=== PATIENT | female | born 1975 | race Caucasian/White ===

== ENCOUNTER 2017-01-14 09:00 | Emergency (ER) | payer OTHER, BC ==
[~2017-01-14] VITALS: Ht 157.5 cm; Wt 90.7 kg
--- NOTE | ~2017-01-14 | CR282 ---
[facility]. [facility] A Service of [facility] & [facility] RADIOLOGY TEXT RESULTS PATIENT: HERB YOU LOCATION: SED : 77 UNIT #: [id number] AGE: [address]: Myke eRy MD SEX: F ORDER DR: [id number] [place] [address] [id number] E MR#: [id number] Acc #: [id number] NAME: HERB YOU : 1975 SEX: F STUDY DATE/TIME: 01/14/2017 09:24 UNIT: SED ROOM: STUDY DESCRIPTION: CR Wrist Min 3 View Rt Attending Physician: Myke Rey M.D. Ordering Physician: Myke Rey M.D. Primary Care Physician: Emily Ordoñez M.D. MEDICAL IMAGING REPORT This report is preliminary unless electronic signature is present. EXAM Right wrist 3 views 01/14/2017 0924 hours HISTORY 41-year-old woman who fell at work yesterday at 1700 hours. Patient complains of bilateral wrist and right ankle pain since fall. COMPARISON None. FINDINGS AP, lateral and oblique views demonstrate no fracture, dislocation or degenerative change. IMPRESSION Negative right wrist. Dictated by... Meeta Naqvi M.D. THIS IS AN ELECTRONICALLY VERIFIED REPORT Meeta Naqvi M.D. at 01/14/2017 2:30 PM ROSA MARIA/андрей TD: 01/14/2017 10:23 JOB #: [id number] MEDICAL IMAGING REPORT Page 1 of 1
--- NOTE | ~2017-01-14 | CR281 ---
[facility]. [facility] A Service of [facility] & [facility] RADIOLOGY TEXT RESULTS PATIENT: HERB YOU LOCATION: SED : 77 UNIT #: [id number] AGE: [address]: Myke Rey MD SEX: F ORDER DR: [id number] [place] [address] [id number] E MR#: [id number] Acc #: [id number] NAME: HERB YOU : 1975 SEX: F STUDY DATE/TIME: 01/14/2017 09:24 UNIT: SED ROOM: STUDY DESCRIPTION: CR Wrist Min 3 View Lt Attending Physician: Myke Rey M.D. Ordering Physician: Myke Rey M.D. Primary Care Physician: Emily Ordoñez M.D. MEDICAL IMAGING REPORT This report is preliminary unless electronic signature is present. EXAM Left wrist 3 views, 01/14/2017 09:24 hours HISTORY 41-year-old woman who fell at work yesterday at 1700 hours. Pain in both wrists and right ankle since fall. COMPARISON None FINDINGS AP, lateral and oblique views demonstrate overall normal bone density. There is no fracture, dislocation or degenerative change. IMPRESSION Negative left wrist. Dictated by... Meeta Naqvi M.D. THIS IS AN ELECTRONICALLY VERIFIED REPORT Meeta Naqvi M.D. at 01/14/2017 2:30 PM ROSA MARIA/kaelyn TD: 01/14/2017 10:15 JOB #: [id number] MEDICAL IMAGING REPORT Page 1 of 1
--- NOTE | ~2017-01-14 | CR21 ---
[facility]. [facility] A Service of [facility] & [facility] RADIOLOGY TEXT RESULTS PATIENT: HERB YOU LOCATION: SED : 77 UNIT #: [id number] AGE: [address]: Myke Rey MD SEX: F ORDER DR: [id number] [place] [address] [id number] E MR#: [id number] Acc #: [id number] NAME: HERB YOU : 1975 SEX: F STUDY DATE/TIME: 01/14/2017 09:24 UNIT: SED ROOM: STUDY DESCRIPTION: CR Ankle Min 3 Views Rt Attending Physician: Myke Rey M.D. Ordering Physician: Myke Rey M.D. Primary Care Physician: Emily Ordoñez M.D. MEDICAL IMAGING REPORT This report is preliminary unless electronic signature is present. EXAM Right ankle 3 views 01/14/2017 0924 hours CLINICAL HISTORY 41-year-old woman who fell at work yesterday at 1700 hours. Bilateral wrist and right ankle pain since fall. COMPARISON None. FINDINGS AP, lateral and oblique views demonstrate no fracture, dislocation or degenerative change. IMPRESSION Negative right ankle. Dictated by... Meeta Naqvi M.D. THIS IS AN ELECTRONICALLY VERIFIED REPORT Meeta Naqvi M.D. at 01/14/2017 2:30 PM ROSA MARIA/андрей TD: 01/14/2017 10:20 JOB #: [id number] MEDICAL IMAGING REPORT Page 1 of 1
[~2017-01-14 09:00] MED LIST: AMLODIPINE BESY10 MG PO; ASPIRIN ENTERI325 M1 PO; LORTAB 7.5-5001 TAB PO
== END 2017-01-14 10:15 | disposition home or self-care (01) ==
LOC: SED 09:00
DX: S93.401A Sprain of unspecified ligament of right ankle, initial encounter (principal); S60.212A Contusion of left wrist, initial encounter; S60.211A Contusion of right wrist, initial encounter; I10 Essential (primary) hypertension; W01.0XXA Fall on same level from slipping, tripping and stumbling without subsequent striking against object, initial encounter; Y93.89 Activity, other specified; Y92.69 Other specified industrial and construction area as the place of occurrence of the external cause; Y99.0 Civilian activity done for income or pay
CPT/HCPCS: 73110; 73610; 96372; 99283; J1885